=== PATIENT | female | born 1970 | race Caucasian/White ===

== ENCOUNTER 2019-10-24 07:26 | Emergency (ER) | payer BC ==
[~2019-10-24] VITALS: Ht 162.6 cm; Wt 90.7 kg
[2019-10-24 07:44] VITALS: Ht 162.6 cm; Wt 90.7 kg
[2019-10-24 08:30] LABS: PLATELET COUNT 311 x10^3mcL (130-400); RED CELL DISTRIBUTION WIDTH 13.4 % (11.5-14.5)
[2019-10-24 08:54] LABS: CALCIUM 8.3 mg/dL (8.5-10.1); CARBON DIOXIDE 21.4 mmol/L (21-32); CHLORIDE SERUM 96 mmol/L (98-107); CREATININE SERUM 0.8 mg/dL (0.6-1.0); GFR1 > 60 mL/min; GLUCOSE SERUM 132 mg/dL (74-106); POTASSIUM SERUM 3.1 mmol/L (3.5-5.1); SODIUM SERUM 131 mmol/L (136-145)
[2019-10-24 08:58] LABS: ALKALINE PHOSPHATASE 61 U/L (46-116); ALT/SGPT 37 U/L (14-59); AST/SGOT 24 U/L (15-37); BILIRUBIN TOTAL 0.39 mg/dL (0.20-1.00); LACTIC DEHYDROGENASE (LDH) 295 U/L (100-190); TOTAL PROTEIN, SERUM 7.7 g/dL (6.4-8.2)
[2019-10-24 08:59] LABS: ALBUMIN 2.9 g/dL (3.4-5.0)
[2019-10-24 09:06] LABS: UA SPECIFIC GRAVITY 1.025 (1.005-1.035); microscopic required? YES; urine erythrocyte 2+ (NEGATIVE)
[2019-10-24 09:51] VITALS: BP 137/78
[2019-10-24 09:58] LABS: BAND NEUTROPHIL 3 % (0-10); BASOPHIL 0 % (0-2); MONOCYTE 4 % (0-7); SEGMENTED NEUTROPHILS 80 % (37-75)
[2019-10-24 10:18] LABS: C REACTIVE PROTEIN 24.3 mg/dL (<=0.9)
== END 2019-10-24 09:51 | disposition left against medical advice (07) ==
LOC: ED 07:26 → DU 09:40 → ED 09:40
PROVIDERS: Specialist
DX: J18.8 Other pneumonia, unspecified organism (principal); N17.9 Acute kidney failure, unspecified; E87.6 Hypokalemia; E86.0 Dehydration
CPT/HCPCS: 36600; 83880; 85378; 87804; J0456; J0696; J7030; J7050; J7060; Q0092